=== PATIENT | male | born 1995 | race Caucasian/White ===

== ENCOUNTER 2016-10-28 12:44 | Emergency (ER) | payer OTHER | END 2016-10-28 14:15 | disposition home or self-care (01) | LOC: ER1 12:44 | DX: S83.92XA Sprain of unspecified site of left knee, initial encounter (principal); S20.211A Contusion of right front wall of thorax, initial encounter; S20.311A Abrasion of right front wall of thorax, initial encounter; F17.210 Nicotine dependence, cigarettes, uncomplicated; Z23 Encounter for immunization; Z88.1 Allergy status to other antibiotic agents; Z88.2 Allergy status to sulfonamides; V19.3XXA Pedal cyclist (driver) (passenger) injured in unspecified nontraffic accident, initial encounter; Y93.55 Activity, bike riding; Y92.009 Unspecified place in unspecified non-institutional (private) residence as the place of occurrence of the external cause | CPT/HCPCS: 71020; 73564; 73590; 90471; 90715; 99283 ==

== ENCOUNTER 2016-12-21 05:37 | Emergency (ER) | payer OTHER | END 2016-12-21 07:25 | disposition home or self-care (01) | LOC: ER1 05:37 | DX: S81.012A Laceration without foreign body, left knee, initial encounter (principal); Z88.1 Allergy status to other antibiotic agents; Z88.2 Allergy status to sulfonamides; W26.8XXA Contact with other sharp object(s), not elsewhere classified, initial encounter | CPT/HCPCS: 12001; 99283 ==